=== PATIENT | male | born 1970 ===

== ENCOUNTER → 2018-10-13 | Outpatient (CLI) | payer BC ==
[2018-10-13 16:57] LABS: ANION GAP 8 (5-19); BLOOD UREA NITROGEN 19 mg/dL (7-20); CARBON DIOXIDE 29 mmol/L (22-30); CHLORIDE 104 mmol/L (98-107); GLUCOSE 82 mg/dL (75-110); POTASSIUM 4.1 mmol/L (3.6-5.0); SODIUM 141.2 mmol/L (137-145)
--- NOTE | 2018-10-13 18:38 | EKG REPORT ---
SEVERITY:- NORMAL ECG - SINUS RHYTHM : Confirmed by: Jesus Weston MD 13-Oct-2018 18:38:05
== END ==
LOC: OD 15:50
PROVIDERS: ATTEND Surgery
DX: G47.30 Sleep apnea, unspecified (principal)
CPT/HCPCS: 36415; 80048; 93005; 93010